=== PATIENT | female | born 1970 | race Hispanic/Latino ===

== ENCOUNTER 2017-02-19 15:01 | Emergency (ER) | payer SELFPAY ==
[~2017-02-19 15:01] MED LIST: AMIDATE IV ONE; DIPRIVAN 10 MG/ML 1,000 MG/100 ML BOTTLE IV SCH; QUELICIN IV ONE
--- NOTE | 2017-02-19 15:25 | Emergency Department Report ---
ED CPR HPI - General Stated Complaint: CVA Time Seen by Provider: 02/19/17 15:19 - History of Present Illness Initial Comments: The patient presents to this facility with CPR progress. Initially the nurse stated that she received a report that the patient had a seizure and was found in the road without life signs. Upon arrival paramedics state that the fire department was on the scene. They state that the patient was seen by her doctor earlier in the day. She drove home from her doctor and collapsed in the street in front of her whole they state. On arrival CPR was in progress with the Mu device. Patient has had CPR with the Mu device for a prolonged period of time prior (yet uncertain but perhaps > 1/2 hour) to arrival in the emergency department. Medics state that intubation was never attempted because "the patient was breathing on her own". Spontaneous respiration was observed when the patient arrived with Mu device compressions in progress. There is evidence of head trauma (eyebrow laceration) and other traumatic injury see below upon arrival. On arrival, the patient's eyes are deviating to the right and the pupils are mid position and not grossly reactive. The patient was intubated directly upon arrival with cervical spine precautions. A cervical collar was placed. MD Complaint: found unresponsive Place: street Bystander CPR Performed: No Shock Advised: No (no shock given en route) Initial Findings in the Field: unresponsive ROSC in the Field: No (according to medic) Associated Injuries: Yes (see note to follow) Treatments Prior to Arrival: chest compressions (with Mu prolonged) - Related Data Allergies Allergy/AdvReac Type Severity Reaction Status Date / Time Unable to Assess Allergy Unverified 02/19/17 15:27 ED Review of Systems ROS: Stated complaint: CVA Other details as noted in HPI Comment: Unobtainable due to pts medical conditions ED Past Medical Hx - Past Medical History Additional medical history: unknown ED Physical Exam - General Limitations: Other (GCS is 3) General appearance: obese - Head Head exam: Present: other (laceration of the right eyebrow laterally perhaps 2 cm) - Eye Eye exam: Present: other (conjugate gaze deviation to the right) - ENT ENT exam: Present: mucous membranes dry - Neck Neck exam: Present: normal inspection - Respiratory Respiratory exam: Present: decreased breath sounds - Cardiovascular Cardiovascular Exam: Present: tachycardia - GI/Abdominal GI/Abdominal exam: Present: distended - Extremities Exam Extremities exam: Present: other (no gross deformity) - Back Exam Back exam: Present: other (nurse states nothing abnormal on limited inspection) - Neurological Exam Neurological exam: Present: other (GCS 3) - Psychiatric Psychiatric exam: Present: other (not applicable) - Skin Skin exam: Present: other (appears to have hartley both first-degree and second- degree with the request blister of the arm and the leg on the right) ED Course Vital Signs 02/19/17 15:02 Pulse Rate 126 H Respiratory 12 Rate Blood Pressure 122/78 O2 Sat by Pulse 98 Oximetry - Reevaluation(s) Reevaluation #1: Patient was given etomidate and succinylcholine. She was intubated without difficulty under direct laryngoscopy. Tube was observed to pass through the cords. Breath sounds were somewhat increased on the right compared to the left. Tube position appeared to be adequate at 23 cm at the teeth. End-tidal 6 CO2 was bright yellow. Palpation of the patient's chest appeared to indicate that she had instability on the left. A pneumothorax was strongly suspected with the decreased breath sounds on the left side. The patient developed cyanosis and decreasing SaO2. As such it was elected to place an emergency chest tube empirically. A chest tube was placed under less than sterile conditions as an emergency procedure using the available blade which was a #10. The patient was morbidly obese. A Mary clamp was used to enter the left chest cavity at or about the fifth intercostal at the mid-axillary line on the left. There was a gush of air upon entry to the left chest with the clamp A chest tube was placed. It was noted that there appeared to be possibly gastric content in the chest tube. Despite interventions the patient continued to deteriorate. She showed signs of traumatic asphyxia? with a grossly cyanotic head. Her pulse oximetry improved to the 80s. However, her heart rate rapidly diminished and she became asystolic. She did not respond to CPR nor epinephrine. Her status was deemed entirely hopeless after prolonged CPR and the above findings and course. An NGT was attempted but it was repeatedly coiled and did not pass into the stomch. The patient cardiac rhythm deteriated rapidly. She was pronounced in asystole. Further resuscitative efforts were deemed completely futile. 02/19/17 15:41 02/19/17 15:59 - Chest Tube Chest Tube Location: mid axillary line [place] of [place]: Yes Number of Attempts: 1 Tube Sutured to Skin: No Post Procedure CXR?: No - Intubation Time Out Performed: No Paralytic: Succinylcholine Laryngoscope: Wan Size: 4 ET Tube Size: 8 Tube Secured Depth (cm): 23 Tube Secured Location: teeth Tube Placement Confirmation: visualized tube passing t, no breath sounds over epi, confirmation by capnometr Patient Tolerated Procedure: other (CPR in progress) Intubation Complications: none ED Medical Decision Making - Radiology Data interpreted by me: A post mortem x-ray was obtained. The patient had a large amount of SQ air on the left side. The lungs are expanded. A endotracheal tube is in good position in the trachea. The is a large amount of intraperitoneal air on the right above the liver. Critical care attestation.: If time is entered above; I have spent that time in minutes in the direct care of this critically ill patient, excluding procedure time. ED Disposition Clinical Impression: Cardiac arrest Disposition: DC-20 Is pt being admited?: No Does the pt Need Aspirin: No Condition: Stable Time of Disposition: 16:02
[2017-02-19] MEDS ORDERED: ARTIFICIAL TEARS OPHTH OINT OU PRN (15:28)
[2017-02-19] MEDS ORDERED: VASELINE LIP THERAPY TP PRN (15:28)
[2017-02-19 15:32] VITALS: BP 122/78
--- NOTE | 2017-02-19 15:45 | XRay Report ---
AP CHEST: HISTORY: Hypotension, endotracheal tube placement. No comparison. An endotracheal tube has been inserted which terminates 2 cm superior to the [place]. Cardiac defibrillator pads are also present. Mild cardiomegaly and mild bilateral pulmonary edema are suspected. There appears to be a large amount of free air beneath the right hemidiaphragm. Visceral perforation should be considered. There is suggestion of a nasogastric tube coiled in the neck which is partially imaged. IMPRESSION: Adequate placement of the endotracheal tube. There appears to be a nasogastric tube coiled in the neck. This may represent the proximal portions of the endotracheal tube. Please correlate with the patient. Cardiomegaly and pulmonary edema. Large free air in the abdomen, visceral perforation is likely.
[2017-02-19] MEDS ORDERED: QUELICIN ONE (21:23)
[2017-02-19] MEDS ORDERED: AMIDATE IV ONE (21:23)
[2017-02-19] MEDS ORDERED: ADRENALIN ONE (21:25)
== END 2017-02-19 17:40 ==
LOC: ED 15:01
DX: I46.9 Cardiac arrest, cause unspecified (principal)
CPT/HCPCS: 31500; 32551; 43246; 71010; 92950; 99285; J0171; J0330